=== PATIENT | male | born 1950 | race Native Hawaiian/Other Pacific Islander ===

== ENCOUNTER 2017-10-27 04:43 | Emergency (ER) | payer OTHER ==
[~2017-10-27] VITALS: Ht 182.9 cm; Wt 81.6 kg
[2017-10-27 05:03] LABS: PLATELET COUNT 276 K/uL (142-355)
[2017-10-27 05:19] LABS: POTASSIUM 4.6 mmol/L (3.6-5.2)
[2017-10-27] MEDS ORDERED: AMLODIPINE BESYLATE PO (05:31)
[2017-10-27] MEDS ORDERED: LIPITOR40 MG PO (05:32)
[2017-10-27] MEDS ORDERED: ASPIRIN 8181 MG PO (05:32)
[2017-10-27] MEDS ORDERED: DULOXETINE HCL60 MG PO (05:33)
[2017-10-27] MEDS ORDERED: DONE5TAB PO (05:33)
[2017-10-27] MEDS ORDERED: KP FOLIC ACID1 MG PO (05:34)
[2017-10-27] MEDS ORDERED: NAMENDA10 MG PO (05:35)
[2017-10-27] MEDS ORDERED: LISI10TA11 PO (05:35)
[2017-10-27] MEDS ORDERED: KEPPRA750 MG PO (05:35)
[2017-10-27] MEDS ORDERED: HYDR5TAB9 PO (05:36)
[2017-10-27] MEDS ORDERED: CLOP75TA2 PO (05:38)
[2017-10-27] MEDS ORDERED: LEVO0.0529 PO (05:39)
[2017-10-27] MEDS ORDERED: THIA100T8 PO (05:40)
[2017-10-27] MEDS ORDERED: TRAZ50TA36 PO (05:41)
[2017-10-27 06:14] VITALS: BP 139/79; TEMP 98.3
[2017-11-10] MEDS ORDERED: DULO30CA PO (15:20)
[2017-11-10] MEDS ORDERED: OXCARBAZEPIN300 MG PO ×2 (15:20)
[2017-11-10] MEDS ORDERED: TRAZ50TA36 PO (15:20)
[2017-11-10] MEDS ORDERED: MELOXICAM7.5 MG PO (15:20)
== END 2017-10-27 06:14 | disposition other institution (70) ==
LOC: ED 04:43
DX: Z04.6 Encounter for general psychiatric examination, requested by authority (principal); F31.89 Other bipolar disorder
CPT/HCPCS: 36415; 80053; 81000; 83735; 84100; 85027; 93005; 99285

== ENCOUNTER 2018-11-19 18:38 | Emergency (ER) | payer OTHER ==
[~2018-11-19] VITALS: Ht 182.9 cm; Wt 89.4 kg
[~2018-11-19 18:38] MED LIST: AMLODIPINE BESYLATE PO; ASPIRIN 8181 MG PO; CLOP75TA2 PO; DONE5TAB PO; DULO30CA PO; DULOXETINE HCL60 MG PO; HYDR5TAB9 PO; KEPPRA750 MG PO; KP FOLIC ACID1 MG PO; LEVO0.0529 PO; LIPITOR40 MG PO; LISI10TA11 PO; MELOXICAM7.5 MG PO; NAMENDA10 MG PO; OXCARBAZEPIN300 MG PO; THIA100T8 PO; TRAZ50TA36 PO
[2018-11-19 19:11] LABS: PLATELET COUNT 266 K/uL (142-355)
[2018-11-19 19:27] LABS: POTASSIUM 4.2 mmol/L (3.6-5.2)
[2018-11-19 19:46] VITALS: BP 137/78; TEMP 98.2
[2018-11-19] MEDS ORDERED: HYDROCODONE BIT1 TA2 PO (22:58)
[2018-11-19] MEDS ORDERED: OXCARBAZEPIN300 MG PO (23:05)
[2018-11-19] MEDS ORDERED: SEROQUEL50 MG PO (23:07)
[2018-11-19] MEDS ORDERED: BUSPIRONE HYDROC5 MG PO (23:12)
[2018-11-19] MEDS ORDERED: DICL75TA4 PO (23:15)
== END 2018-11-19 19:48 | disposition other institution (70) ==
LOC: ED 18:50
PROVIDERS: Emergency Medicine
DX: F28 Other psychotic disorder not due to a substance or known physiological condition (principal); I45.19 Other right bundle-branch block; Z04.6 Encounter for general psychiatric examination, requested by authority
CPT/HCPCS: 36415; 80053; 81000; 85027; 93005; 99285